=== PATIENT | male | born 1965 | race Caucasian/White ===

== ENCOUNTER 2020-02-08 16:14 | Emergency (ER) | payer BC ==
--- NOTE | 2020-02-10 13:31 | ER ---
HISTORY OF PRESENT ILLNESS: This is a 54-year-old male who called the clinic earlier today. He was having quite a bit of nausea with episodes that brought him near vomiting but had not vomited. He was also complaining of his heart racing. He had tested negative for COVID back in December and was wondering if he needed to be tested for COVID began. I was more concerned when talking to him on the phone that he might have something wrong with his heart. I directed him to present to the emergency room. I am seeing him due to the fact that the other emergency room provider is extremely busy. MEDICATIONS: The patient is on a daily aspirin regimen. He does have diabetes mellitus and takes glipizide as well as metformin and Jardiance. His last A1c was on December 13, 2019, and found to be 9.9%. He takes several dietary supplements including cinnamon capsules, flaxseed oil capsules, lutein capsules, multivitamin, omega-3, and red yeast rice capsules. PHYSICAL EXAMINATION: VITAL SIGNS: Temp is 99.4, pulse is 101, respirations 18, blood pressure 166/91, oxygen saturation is 95%. GENERAL: He is somewhat diaphoretic. SKIN: Normal in color and texture. CARDIAC: Reveals S1, S2 to be normal. Rate and rhythm are regular. No murmur, click, or gallop is auscultated. LUNGS: Clear without rales, wheezes, or rhonchi. ABDOMEN: Soft, nontender. Bowel sounds present in all four quadrants. EXTREMITIES: There is no pedal edema. IMPRESSION/PLAN: Palpitation. He did have a 12-lead EKG performed which showed a normal sinus rhythm with a ventricular rate of 98 beats per minute; good R- wave progression throughout the precordial leads; no ectopics or conduction delays. There was an automated message from the EKG machine that showed a nonspecific T-wave abnormality. There were no acute ST-T wave changes. He did have a CBC and a troponin. I did request a TSH as well as a chemistry panel as well. Those latter tests had to be sent to a reference lab due to the fact that the specimen was so lipemic. CBC was essentially normal. Troponin was negative at 0.01, which is within normal reference range. I did discharge the patient home. I would like him to return to this facility on Tuesday to be tested again for COVID. He verbalizes understanding. He was excused from work until the results of his COVID tests are normal. The rest of his chronic disease states are stable at this time. He will follow up with me in the clinic. /[id number]/MODL
== END 2020-02-08 17:50 | disposition home or self-care (01) ==
LOC: KA.ED 16:14
DX: R00.2 Palpitations (principal); E11.9 Type 2 diabetes mellitus without complications; Z79.82 Long term (current) use of aspirin
CPT/HCPCS: 36415; 80053; 84443; 84484; 85025; 93005; 99285-25

== ENCOUNTER 2020-10-11 09:18 | Emergency (ER) | payer BC ==
--- NOTE | 2020-10-11 10:51 | CR ---
[id number] RAD/RAD Foot Right 3V Min EXAM: 3 VIEWS RIGHT FOOT. INDICATION: BRUISED AREA #2 TOE. COMPARISON: None. DISCUSSION: No fracture, dislocation or other acute osseous abnormality. Hallux valgus deformity with large bunion. Mild degenerative changes of the 1st metatarsophalangeal as well as the interphalangeal joints. Small plantar calcaneal spur. Enthesopathic change at the Achilles insertion. Mild degenerative changes of the right ankle. IMPRESSION: 1. No acute osseous abnormalities. Chronic changes as above. Luís Fraga DO 10/11/20 1048 Thank you for allowing us to participate in the care of your patient.
[2020-10-11 10:54] LABS: ANION GAP 17.7 mmol/L (5-15); CHLORIDE,CL 96 mmol/L (98-107); SODIUM,NA 132 mmol/L (136-145)
--- NOTE | 2020-10-11 11:17 | EDM.PDOC ---
ED HPI GENERAL MEDICAL PROBLEM - General Chief Complaint: General Stated Complaint: RIGHT LEG/FOOT SORES Time Seen by Provider: 10/11/20 10:00 Source of Information: Reports: Patient History Limitations: Reports: No Limitations - History of Present Illness INITIAL COMMENTS - FREE TEXT/NARRATIVE: Ronnie is a very pleasant 55-year-old male comes in for evaluation of lower leg abrasion that has become of concern and a second toe scab. He had an abrasion to his lower leg from sheet-metal about a month ago. He did state that he was fishing the other day and had some leeches that attached to the area that he removed fairly quickly but has then developed some bruising or bleeding around the undersurface of his skin at the area of his abrasion. He also has a scab overlying the dorsal aspect of his right second toe. He has not had significant swelling or redness around either the abrasion of his lower leg or the second toe. He has not had any fever or chills. He does not feel sick or under weather. He has had problems with controlling of his blood sugars he has been on oral medication for type 2 diabetes for about 10 years. He has developed some insulin resistance and has an appointment this next Tuesday with the log rider. His hemoglobin A1c has been running around 9.5. He states his blood sugars are running in 300s if he eats anything other than vegetables. No other concerns or currently voiced. He denies any significant shortness of breath or chest pain. No abdominal pain complaints, no respiratory complaints. Onset: Gradual Duration: Week(s):, Recurring Location: Reports: Lower Extremity, Right Quality: Reports: Dull Severity: Mild Improves with: Reports: None Worsens with: Reports: None Associated Symptoms: Reports: No Other Symptoms - Related Data Allergies Allergy/AdvReac Type Severity Reaction Status Date / Time gemfibrozil [Gemfibrozil] Allergy Muscle Verified 10/11/20 09:30 Aches morphine Allergy Agitation Verified 10/11/20 09:30 shellfish derived Allergy Facial Verified 10/11/20 09:30 Swelling Home Meds: Home Meds Aspirin [Adult Low Dose Aspirin EC] 81 mg PO DAILY 05/10/13 [History] Yliseptic 2 sprays NASBOTH BID 05/10/13 [History] metFORMIN [Glucophage] 500 mg PO BID 05/10/13 [History] Psyllium Husk [Fiber] 1 cap PO ASDIRECTED PRN 05/11/13 [History] Cholecalciferol (Vitamin D3) [Vitamin D3] 1,000 unit PO DAILY 10/11/20 [History] Cinnamon Bark [Cinnamon] 1,000 mg PO DAILY 10/11/20 [History] Empagliflozin [Jardiance] 25 mg PO DAILY 10/11/20 [History] Flaxseed Oil 1,000 mg PO BID 10/11/20 [History] Multivit-Min/Folic/Vit K/Lycop [One Daily Men's 50 Plus D3 Tab] 1 tab PO DAILY 10/11/20 [History] Opnkr-5-Fdxt 2,000 mg PO BID 10/11/20 [History] Potassium Gluconate [Potassium] 99 mg PO BID 10/11/20 [History] Red Yeast Rice 600 mg PO BID 10/11/20 [History] Tumeric/Ging/[place]/Oreg/Capryl [Candicidal Capsule] 1 each PO DAILY 10/11/20 [History] Zinc 50 mg PO BID 10/11/20 [History] glipiZIDE [Glucotrol] 20 mg PO BID 10/11/20 [History] Past Medical History HEENT History: Reports: Hard of Hearing, Impaired Vision Cardiovascular History: Reports: High Cholesterol Respiratory History: Reports: Sleep Apnea Gastrointestinal History: Reports: Cholelithiasis, Diverticulosis, Pancreatitis Genitourinary History: Reports: None Musculoskeletal History: Reports: Fracture Neurological History: Reports: Neuropathy, Diabetic Psychiatric History: Reports: None Endocrine/Metabolic History: Reports: Diabetes, Type II Hematologic History: Reports: None Immunologic History: Reports: None Oncologic (Cancer) History: Reports: None Dermatologic History: Reports: None - Infectious Disease History Infectious Disease History: Reports: Chicken Pox, Influenza - Past Surgical History HEENT Surgical History: Reports: Naso-Sinus Surgery Cardiovascular Surgical History: Reports: None Respiratory Surgical History: Reports: None GI Surgical History: Reports: Hernia, Inguinal Male Surgical History: Reports: Circumcision Endocrine Surgical History: Reports: None Neurological Surgical History: Reports: C-Spine Musculoskeletal Surgical History: Reports: Shoulder Surgery Oncologic Surgical History: Reports: None Dermatological Surgical History: Reports: None Social & Family History - Tobacco Use Tobacco Use Status *Q: Former Tobacco User Used Tobacco, but Quit: Yes Month/Year Tobacco Last Used: quit years ago - Caffeine Use Caffeine Use: Reports: Soda - Recreational Drug Use Recreational Drug Use: No ED ROS GENERAL - Review of Systems Review Of Systems: See Below Constitutional: Denies: Fever, Chills, Weakness, Fatigue, Night Sweats, Diaphoresis, Decreased Appetite, Weight Loss HEENT: Reports: Glasses Respiratory: Denies: Shortness of Breath, Cough Cardiovascular: Denies: Chest Pain, Blood Pressure Problem, Lightheadedness, Orthopnea, Palpitations Endocrine: Reports: High Glucose GI/Abdominal: Reports: No Symptoms : Reports: No Symptoms Musculoskeletal: Reports: No Symptoms, Other (Right second toe scab overlying the PIP joint no surrounding redness. No warmth no swelling. There is hammering of the toe. Patient's feet by bilaterally on the plantar surface are unremarkable for pressure sores or ulcers.) Skin: Reports: Other (Small abrasion over the right anterior tibia. There is no signs of infection no surrounding erythema. There is ecchymosis underlying the skin. There is no reaction.) Neurological: Reports: No Symptoms ED EXAM, GENERAL - Physical Exam Exam: See Below Exam Limited By: No Limitations General Appearance: Alert, No Apparent Distress, Obese Eye Exam: Bilateral Eye: PERRL Ears: Hearing Grossly Normal Nose: Normal Inspection Throat/Mouth: Normal Inspection, Normal Voice, No Airway Compromise Neck: Normal Inspection, Supple Respiratory/Chest: Lungs Clear Cardiovascular: Regular Rate, Rhythm Peripheral Pulses: 1+: Dorsalis Pedis (L), Dorsalis Pedis (R) GI/Abdominal: Soft, Non-Tender Extremities: Normal Inspection, Normal Range of Motion, Non-Tender, No Pedal E maico, Normal Capillary Refill, Other (Right kumar shows a small abrasion, this is nonreactive no surrounding erythema. There is some ecchymosis surrounding the area of his abrasion with no significant evidence of underlying cellulitis or infection. Right great toe shows hammering of the toe there is a scab overlying the PIP joint again). No: Joint Swelling, Increased Warmth, Redness Neurological: Alert, Oriented, No Motor/Sensory Deficits Psychiatric: Normal Affect, Normal Mood Skin Exam: Warm, Dry, Intact, Normal Color, Wound/Incision (Abrasion over the right kumar with surrounding ecchymosis. No erythema. Right second toe has a scab nonreactive overlying the PIP joint.) Lymphatic: No Adenopathy Course - Vital Signs Last Recorded V/S: Last Vital Signs Temp 98.4 F 10/11/20 09:24 Pulse 72 10/11/20 10:50 Resp 18 10/11/20 10:50 BP 125/74 10/11/20 10:50 Pulse Ox 95 10/11/20 10:50 - Orders/Labs/Meds Labs: Laboratory Tests 10/11/20 10/11/20 Range/Units 10:08 10:08 WBC 5.59 (5.00-10.00) 10^3/uL RBC 5.49 (4.50-6.00) 10^6/uL Hgb 16.9 D (13.0-17.0) g/dL Hct 48.9 (40.0-52.0) % MCV 89.1 (82.0-92.0) fL MCH 30.8 (27.0-31.0) pg MCHC 34.6 (32.0-36.0) g/dL RDW 12.0 (11.5-14.5) % Plt Count 208 (150-400) 10^3/uL MPV 10.7 H (7.4-10.4) fL Immature Gran % (Auto) 0.4 (0.0-5.0) % Neut % (Auto) 55.7 (50.0-70.0) % Lymph % (Auto) 29.5 (20.0-40.0) % [place] % (Auto) 8.2 H (2.0-8.0) % Eos % (Auto) 4.8 H (1.0-3.0) % Baso % (Auto) 1.4 H (0.0-1.0) % Neut # (Auto) 3.11 (2.50-7.00) 10^3/uL Lymph # (Auto) 1.65 (1.00-4.00) 10^3/uL [place] # (Auto) 0.46 (0.10-0.80) 10^3/uL Eos # (Auto) 0.27 (0.10-0.30) 10^3/uL Baso # (Auto) 0.08 (0.00-0.10) 10^3/uL Immature Gran # (Auto) 0.02 (0.00-0.50) 10^3/uL Sodium 132 L (136-145) mmol/L Potassium 5.1 (3.5-5.1) mmol/L Chloride 96 L (98-107) mmol/L Carbon Dioxide 23.4 (21.0-32.0) mmol/L Anion Gap 17.7 H (5-15) mmol/L BUN 20 H (7-18) mg/dL Creatinine 0.68 (0.51-1.17) mg/dL Est Cr Clr Drug Dosing 4.61 mL/min Estimated GFR (MDRD) > 60 mL/min Glucose 260 H (70-140) mg/dL Calcium 7.9 L (8.7-10.3) mg/dL Total Bilirubin 1.1 H (0.2-1.0) mg/dL AST 13 L (15-37) U/L ALT 44 (14-63) U/L Alkaline Phosphatase 84 (46-116) U/L Total Protein 6.9 (6.4-8.2) g/dL Albumin 3.55 (3.40-5.00) g/dL - Re-Assessments/Exams Free Text/Narrative Re-Assessment/Exam: 10/11/20 11:23 Patient is doing well I reviewed his lab work with him today in addition to concerns overlying his kumar and second toe. These are nonreactive noninfectious appearing currently at this time. Recommended observation and daily skin checks. Departure - Departure Time of Disposition: 11:24 Disposition: Home, Self-Care 01 Condition: Good Clinical Impression: Poorly controlled type 2 diabetes mellitus, Abrasion, right lower leg, initial encounter, Hammertoe of second toe of right foot Diabetic foot ulcer associated with type 2 diabetes mellitus Qualifiers: Diabetic foot ulcer location: toe Laterality: right Non-pressure ulcer stage: limited to breakdown of skin Qualified Code(s): E11.621 - Type 2 diabetes mellitus with foot ulcer; L97.511 - Non-pressure chronic ulcer of other part of right foot limited to breakdown of skin - Discharge Information Instructions: Diabetes Mellitus and Foot Care, Living With Diabetes, Insulin Resistance Referrals: Lora Maria MD [Primary Care Provider] - Forms: ED Department Discharge Care Plan Goals: 1. Daily lower extremity and foot checks. 2. Keep the area of abrasions clean and dry. You may use a triple antibiotic ointment over the abrasion. 3. You have a appointment next week with log rider for your insulin resistance to oral medication. 4. Routine follow-up with your primary care. Sepsis Event Note (ED) - Evaluation Sepsis Screening Result: No Definite Risk - Focused Exam Vital Signs: Vital Signs Temp Pulse Resp BP Pulse Ox 10/11/20 10:50 72 18 125/74 95 10/11/20 10:30 72 18 123/73 96 10/11/20 10:12 81 16 149/98 H 93 L 10/11/20 10:00 82 18 160/100 H 94 L 10/11/20 09:30 83 18 146/83 H 94 L 10/11/20 09:24 98.4 F 88 16 143/94 H 96 - Assessment/Plan Assessment:: Poorly controlled blood sugars and a type II diabetic Elevated hemoglobin A1c Right lower leg abrasion Diabetic foot ulcer right second toe, benign Plan: 1. Daily lower extremity and foot checks. 2. Keep the area of abrasions clean and dry. You may use a triple antibiotic ointment over the abrasion. 3. You have a appointment next week with log rider for your insulin resistance to oral medication. 4. Routine follow-up with your primary care.
== END 2020-10-11 11:30 | disposition home or self-care (01) ==
LOC: KA.ED 09:18
DX: S80.811A Abrasion, right lower leg, initial encounter (principal); E11.621 Type 2 diabetes mellitus with foot ulcer; L97.511 Non-pressure chronic ulcer of other part of right foot limited to breakdown of skin; M20.41 Other hammer toe(s) (acquired), right foot; E11.40 Type 2 diabetes mellitus with diabetic neuropathy, unspecified; Z87.891 Personal history of nicotine dependence; Z88.8 Allergy status to other drugs, medicaments and biological substances; Z88.5 Allergy status to narcotic agent; Z91.013 Allergy to seafood; Z79.82 Long term (current) use of aspirin; Z79.84 Long term (current) use of oral hypoglycemic drugs; Z79.899 Other long term (current) drug therapy; X58.XXXA Exposure to other specified factors, initial encounter
CPT/HCPCS: 36415; 73630-RT; 80053; 85025; 99283-25; 99284